=== PATIENT | male | born 1940 | race Caucasian/White ===

== ENCOUNTER → 2019-10-22 | Outpatient (CLI) | payer MEDICARE ==
[~2019-10-22] MED LIST: ATENOLOL25 MG; CLARITIN10 MG PO; DARVOCET A500 51 TAB PO; ENTERIC ASPIRI325 MG; ERYTHROMYCIN5 MG/G1; FISH OIL 10001000 MG; KEFLEX500 MG PO; LUMIGAN; MOTRIN600 MG PO; MULTIVITAMIN1 CTB; SYSTANE LUBRICAN5 ML OPH; ZITHROMAX Z PA250 MG PO; ZOCOR40 MG; ZOFRAN ODT4 MG PO; [UNRECOGNIZED DRUG - OTHER]
== END | disposition home or self-care (01) ==
LOC: US 14:00
DX: I65.23 Occlusion and stenosis of bilateral carotid arteries (principal); R42 Dizziness and giddiness

== ENCOUNTER → 2021-04-28 | Outpatient (CLI) | payer MEDICARE | END | disposition home or self-care (01) | LOC: LAB 10:51 | PROVIDERS: ATTEND Urology | DX: N21.0 Calculus in bladder (principal) ==

== ENCOUNTER → 2021-05-11 | Outpatient (CLI) | payer MEDICARE ==
[2021-05-11 08:49] LABS: CREATININE 1.02 mg/dL (0.70-1.30)
== END | disposition home or self-care (01) ==
LOC: LAB 00:12 → CT 00:12
PROVIDERS: Radiology Diagnostic Radiology; ATTEND Urology
DX: K80.20 Calculus of gallbladder without cholecystitis without obstruction (principal); K57.30 Diverticulosis of large intestine without perforation or abscess without bleeding; N40.0 Benign prostatic hyperplasia without lower urinary tract symptoms; N21.0 Calculus in bladder

== ENCOUNTER → 2022-01-05 | Day surgery (SDC) | payer OTHER, MEDICARE ==
[2022-01-02 11:50] VITALS: BP 129/73
[~2022-01-05] VITALS: Ht 182.8 cm; Wt 83.0 kg
[~2022-01-05] MED LIST changes: +COLACE100 MG PO; +METAMUCIL0.4 G1 PO; +PERCOCET 5-3251 EACH PO; +ZOFRAN4 MG PO
[2022-01-05 12:06] VITALS: BP 161/72
[2022-01-05 16:45] VITALS: BP 159/81
[2022-01-05 16:58] VITALS: BP 156/65
[2022-01-05 17:15] VITALS: BP 157/68
[2022-01-05 17:29] VITALS: BP 150/71
[2022-01-05 17:41] VITALS: BP 159/61
== END | disposition home or self-care (01) ==
LOC: SDC 01-02 12:30
PROVIDERS: ATTEND Surgery
DX: K40.30 Unilateral inguinal hernia, with obstruction, without gangrene, not specified as recurrent (principal); I10 Essential (primary) hypertension; I25.10 Atherosclerotic heart disease of native coronary artery without angina pectoris; Z95.1 Presence of aortocoronary bypass graft; Z98.890 Other specified postprocedural states; Z79.899 Other long term (current) drug therapy

== ENCOUNTER → 2022-06-08 | Outpatient (CLI) | payer OTHER, MEDICARE | END | disposition home or self-care (01) | LOC: US 06-05 09:30 | PROVIDERS: ATTEND Internal Medicine | DX: I65.23 Occlusion and stenosis of bilateral carotid arteries (principal); I10 Essential (primary) hypertension; F90.9 Attention-deficit hyperactivity disorder, unspecified type ==

== ENCOUNTER → 2025-04-22 | Outpatient (CLI) | payer OTHER, MEDICARE | LOC: LAB 11:39 | PROVIDERS: ATTEND Urology | DX: R97.20 Elevated prostate specific antigen [PSA] (principal) ==